=== PATIENT | female | born 1965 | race Hispanic/Latino ===

== ENCOUNTER 2018-01-05 18:28 | Emergency (ER) | payer OTHER ==
--- OUTSIDE RECORDS SUMMARY | 2018-01-05 18:31 | XMS REPORT | Clinical Summary ---
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 Disp. Refills Start Date End Date Status BREO ELLIPTA 200-25 INHALE ONE DOSE BY 60 each 3 04/13/2016 Active mcg/dose blister with MOUTH DAILY device BREO ELLIPTA 200-25 INHALE 1 INHALATIONS 30 each 2 09/29/2016 Active mcg/dose blister with DAILY FOR 30 DAYS. device powder for inhalation Active Problems Problem Noted Date Lung nodule 01/23/2016 Hypertension Diabetes mellitus Asthma Family History Medical History Relation Name Comments Heart attack Maternal Grandfather Hypertension Maternal Grandfather Arthritis Maternal Grandmother Diabetes Maternal Grandmother Heart attack Maternal Grandmother Hypertension Maternal Grandmother Kidney disease Maternal Grandmother Diabetes Mother Heart attack Mother Hypertension Mother Stroke Mother Thyroid disease Mother Heart attack Paternal Grandfather Hypertension Paternal Grandfather Heart attack Paternal Grandmother Hypertension Paternal Grandmother Crohn's disease Sister Relation Name Status Comments Maternal Grandfather Maternal Grandmother Mother Paternal Grandfather Paternal Grandmother Sister Social History Tobacco Use Types Packs/Day Years Used Date Former Smoker 1 3 Quit: 1983 Alcohol Use Drinks/Week oz/Week Comments Yes social Sex Assigned at Date Recorded Not on file Last Filed Vital Signs Not on file Plan of Treatment Health Maintenance Due Date Last Done Comments DIABETIC FOOT EXAM 1973 DIABETIC RETINAL EYE EXAM 1973 URINE MICROALBUMIN 1973 CERVICAL CANCER SCREENING 1984 BREAST CANCER SCREENING 2013 COLON CANCER SCREENING 2013 SHINGRIX VACCINE (#1) 2013 INFLUENZA VACCINE 03/02/2018 Results Not on fileafter 01/04/2017 Insurance Payer Benefit Plan / Group Subscriber ID Type Phone Address [facility] [employer] HMO/POS/PPO xxxxxxxxx PPO Home: [address] [phone] [address]
--- NOTE | 2018-01-05 20:09 | RAD REPORT ---
EXAM DESCRIPTION: RAD - Knee Right 3 View - 01/05/2018 7:59 pm CLINICAL HISTORY: Slip and fall, knee pain COMPARISON: September 2015 FINDINGS: No fracture, dislocation or periosteal reaction.No joint effusion seen. No joint space carlin rowing. No measurable degenerative change. There is a very minimal spur at the quadriceps attachment to the patella. This is similar to the comparison. IMPRESSION: No acute bone or joint finding. Clinical concerns for internal derangement or occult bony injury could be further assessed with MR im aging.
--- NOTE | 2018-01-05 20:10 | RAD REPORT ---
EXAM DESCRIPTION: RAD - Femur Right - 01/05/2018 7:59 pm CLINICAL HISTORY: Slip and fall, leg pain COMPARISON: None. FINDINGS: No fracture, dislocation or periosteal reaction noted. No acute or suspicious bony finding . No air or foreign body in the soft tissues. IMPRESSION: Negative right femur examination.
[2018-01-05] MEDS ORDERED: IBUPROFEN 200 MG TAB PO ONE (22:45)
--- NOTE | 2018-01-05 22:45 | EDPHYS ---
Physician Documentation [facility] Name: Isela Ivan Age: 52 yrs Sex: Female : 1965 Arrival Date: 01/05/2018 Time: 18:45 Bed 27 Private MD: ED Physician Pop Ye HPI: 01/05 22:39 This 52 yrs old Female presents to ER via EMS with complaints of Fall Injury. hanh 22:39 Details of fall: The patient fell from an upright position, while walking. Onset: The hanh symptoms/episode began/occurred just prior to arrival. Associated injuries: The patient sustained lateral aspect of right thigh, lateral aspect of right knee, medial aspect of right thigh, medial aspect of right knee, right quadriceps and right knee, decreased range of motion. Severity of symptoms: At their worst the symptoms were mild, in the emergency department the symptoms are unchanged. The patient has not experienced similar symptoms in the past. 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 - Ebola Screening: : Patient negative for fever greater than or equal to 101.5 degrees Fahrenheit, and additional compatible Ebola Virus Disease symptoms Patient denies exposure to infectious person Patient denies travel to an Ebola-affected area in the 21 days before illness onset No symptoms or risks identified at this time. - Family history:: not pertinent. ROS: 22:39 Constitutional: Negative for fever, chills, and weight loss, Eyes: Negative for injury, hanh pain, redness, and discharge, ENT: Negative for injury, pain, and discharge, Neck: Negative for injury, pain, and swelling, Cardiovascular: Negative for chest pain, palpitations, and edema, Respiratory: Negative for shortness of breath, cough, wheezing, and pleuritic chest pain, Abdomen/GI: Negative for abdominal pain, nausea, vomiting, diarrhea, and constipation, Back: Negative for injury and pain, : Negative for injury, bleeding, discharge, and swelling, Skin: Negative for injury, rash, and discoloration, Neuro: Negative for headache, weakness, numbness, tingling, and seizure, Psych: Negative for depression, anxiety, suicide ideation, homicidal ideation, and hallucinations, Allergy/Immunology: Negative for hives, rash, and allergies, Endocrine: Negative for neck swelling, polydipsia, polyuria, polyphagia, and marked weight changes, Hematologic/Lymphatic: Negative for swollen nodes, abnormal bleeding, and unusual bruising. 22:39 MS/extremity: Positive for injury or acute deformity, decreased range of motion, pain, of the right leg. Exam: 22:39 Constitutional: This is a well developed, well nourished patient who is awake, alert, hanh and in no acute distress. Head/Face: Normocephalic, atraumatic. Eyes: Pupils equal round and reactive to light, extra-ocular motions intact. Lids and lashes normal. Conjunctiva and sclera are non-icteric and not injected. Cornea within normal limits. Periorbital areas with no swelling, redness, or edema. ENT: Nares patent. No nasal discharge, no septal abnormalities noted. Tympanic membranes are normal and external auditory canals are clear. Oropharynx with no redness, swelling, or masses, exudates, or evidence of obstruction, uvula midline. Mucous membranes moist. Neck: Trachea midline, no thyromegaly or masses palpated, and no cervical lymphadenopathy. Supple, full range of motion without nuchal rigidity, or vertebral point tenderness. No Meningismus. Chest/axilla: Normal chest wall appearance and motion. Nontender with no deformity. No lesions are appreciated. Cardiovascular: Regular rate and rhythm with a normal S1 and S2. No gallops, murmurs, or rubs. Normal PMI, no JVD. No pulse deficits. Respiratory: Lungs have equal breath sounds bilaterally, clear to auscultation and percussion. No rales, rhonchi or wheezes noted. No increased work of breathing, no retractions or nasal flaring. Abdomen/GI: Soft, non-tender, with normal bowel sounds. No distension or tympany. No guarding or rebound. No evidence of tenderness throughout. Back: No spinal tenderness. No costovertebral tenderness. Full range of motion. Female : Normal external genitalia. Skin: Warm, dry with normal turgor. Normal color with no rashes, no lesions, and no evidence of cellulitis. Neuro: Awake and alert, GCS 15, oriented to person, place, time, and situation. Cranial nerves II-XII grossly intact. Motor strength 5/5 in all extremities. Sensory grossly intact. Cerebellar exam normal. Normal gait. Psych: Awake, alert, with orientation to person, place and time. Behavior, mood, and affect are within normal limits. 22:39 Musculoskeletal/extremity: Circulation is intact in all extremities. Compartment Syndrome exam of affected extremity: is normal. DVT Exam: no swelling, negative Homans' sign noted on exam, no appreciated bluish discoloration, no erythema, no increased warmth, pain, tenderness. Vital Signs: 18:48 BP 150 / 78; Pulse 91; Resp 16; Temp 98.0; Pulse Ox 98% on R/A; Weight 95.25 kg; Height aj 5 ft. 2 in. (157.48 cm); Pain 8/10; 23:03 BP 143 / 84; Pulse 87; Resp 18; Pulse Ox 100% on R/A; mb3 18:48 Body Mass Index 38.41 (95.25 kg, 157.48 cm) Blanka Coma Score: 18:48 Eye Response: spontaneous(4). Verbal Response: oriented(5). Motor Response: obeys aj commands(6). Total: 15. Trauma Score (Adult): 18:48 Eye Response: spontaneous(1); Verbal Response: oriented(1); Motor Response: obeys aj commands(2); Systolic BP: > 89 mm Hg(4); Respiratory Rate: 10 to 29 per min(4); Blanka Score: 15; Trauma Score: 12 MDM: 21:54 Patient medically screened. [facility] 22:42 Data reviewed: vital signs, nurses notes, radiologic studies, plain films. [facility] 01/05 18:54 Order name: XRAY Knee RIGHT 3 view; Complete Time: 22:38 01/05 18:54 Order name: XRAY Femur RIGHT; Complete Time: 22:38 Administered Medications: 22:44 Drug: Motrin 600 mg Route: PO; mb3 23:02 Follow up: Response: No adverse reaction mb3 Disposition: 01/05/18 22:45 Discharged to Home. Impression: Fall due to bumping against object, Contusion of knee, Pain in right leg. - Condition is Stable. - Discharge Instructions: Musculoskeletal Pain. - Prescriptions for Tylenol- Codeine #3 300-30 mg Oral Tablet - take 2 tablets by ORAL route every 6 hours As needed; 26 tablet. Motrin IB 200 mg Oral Tablet - take 2 tablet by ORAL route every 6 hours As needed as needed with food; 20 tablet. - Medication Reconciliation Form, Thank You Letter, Antibiotic Education, Prescription Opioid Use form. - Follow up: Private Physician; When: 2 - 3 days; Reason: Recheck today's complaints, Continuance of care, Re-evaluation by your physician. Follow up: Katrhikeyan Stafford MD; When: 2 - 3 days; Reason: Recheck today's complaints, Re-evaluation by your physician. - Problem is new. - Symptoms have improved. Signatures: Dispatcher [employer] EDBarbara Babin RN RN aj Anderson, Corey, MD MD cha Barnett, Mark RN RN mb3 Corrections: (The following items were deleted from the chart) 18:51 18:48 Immunization history Last tetanus immunization: - up to date. larry juarez 23:05 22:45 01/05/2018 22:45 Discharged to Home. Impression: Fall due to bumping against mb3 object; Contusion of knee; Pain in right leg. Condition is Stable. Forms are Medication Reconciliation Form, Thank You Letter, Antibiotic Education, Prescription Opioid Use. Follow up: Private Physician; When: 2 - 3 days; Reason: Recheck today's complaints, Continuance of care, Re-evaluation by your physician. Follow up: Karthikeyan Stafford; When: 2 - 3 days; Reason: Recheck today's complaints, Re-evaluation by your physician. Problem is new. Symptoms have improved. hanh
--- NOTE | 2018-01-05 22:45 | ER ---
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 Reports aj pain that radiates up femur. No redness noted, mild swelling observed. Patient appears comfortable. Care prior to arrival: None. Mechanism of Injury: Fall from standing position. Trauma event details: Injury occurred in the [facility], Injury occurred: in a public building. Injury occurred: January 05, 2018 Injury occurred at: 18:15. 18:48 Acuity: VENKAT 4 aj 18:48 Method Of Arrival: EMS: [facility] 22:24 Transition of care: patient was not received from another setting of care. Onset of mb3 symptoms was January 05, 2018 at 21:30. Risk Assessment: Do you want to hurt yourself or someone else? Patient reports no desire to harm self or others. Initial Sepsis Screen: Does the patient meet any 2 criteria? No. Patient's initial sepsis screen is negative. Does the patient have a suspected source of infection? No. Patient's initial sepsis screen is negative. 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 LMP N/A - Post-menopause mb3 Trauma Activation: Not Applicable Physician: ED Physician; Name: ; Notified At: ; Arrived At: Physician: General Surgeon; Name: ; Notified At: ; Arrived At: Physician: Radiology; Name: ; Notified At: ; Arrived At: Physician: Respiratory; Name: ; Notified At: ; Arrived At: Physician: Lab; Name: ; Notified At: ; Arrived At: Historical: - Allergies: 18:53 Iodine; aj 18:53 Dairy; aj - Home Meds: 18:53 Metformin Oral [Active]; Lisinopril Oral [Active]; Hydrochlorothiazide Oral [Active]; aj Symbicort inhalation inhalation [Active]; - PMHx: 18:53 Diabetes - NIDDM; Hypertension; Asthma; aj - PSHx: 18:53 None; aj - Social history:: Smoking status: Patient/guardian denies using tobacco. - Ebola Screening: : Patient negative for fever greater than or equal to 101.5 degrees Fahrenheit, and additional compatible Ebola Virus Disease symptoms Patient denies exposure to infectious person Patient denies travel to an Ebola-affected area in the 21 days before illness onset No symptoms or risks identified at this time. - Family history:: not pertinent. Screenin:22 Abuse screen: Denies threats or abuse. Nutritional screening: No deficits noted. mb3 Tuberculosis screening: No symptoms or risk factors identified. Fall Risk None identified. Primary Survey: 18:48 A: Airway: patent. Breathing/Chest: Respiratory pattern: regular, Respiratory effort: aj spontaneous, unlabored. Circulation: Skin color: pink. Disability Alert. 22:23 Reassessment Airway Airway Patent Breathing/Chest Respiratory pattern Regular mb3 Respiratory effort Spontaneous Unlabored Circulation Heart rhythm Sinus rhythm. Assessment: 18:48 General: Appears in no apparent distress. comfortable, Behavior is calm, cooperative, aj appropriate for age. Pain: Complains of pain in right quadriceps and right knee Pain currently is 8 out of 10 on a pain scale. Neuro: Level of Consciousness is awake, alert, obeys commands, Oriented to person, place, time, situation, Appropriate for age. Respiratory: Airway is patent Respiratory effort is even, unlabored, Respiratory pattern is regular, symmetrical. Derm: Skin is intact, is healthy with good turgor, Skin is pink, warm \T\ dry. normal. Musculoskeletal: Circulation, motion, and sensation intact. Swelling present in right knee Reports pain in left quadriceps and left knee. Vital Signs: 18:48 BP 150 / 78; Pulse 91; Resp 16; Temp 98.0; Pulse Ox 98% on R/A; Weight 95.25 kg; Height aj 5 ft. 2 in. (157.48 cm); Pain 8/10; 23:03 BP 143 / 84; Pulse 87; Resp 18; Pulse Ox 100% on R/A; mb3 18:48 Body Mass Index 38.41 (95.25 kg, 157.48 cm) aj [place] Coma Score: 18:48 Eye Response: spontaneous(4). Verbal Response: oriented(5). Motor Response: obeys aj commands(6). Total: 15. Trauma Score (Adult): 18:48 Eye Response: spontaneous(1); Verbal Response: oriented(1); Motor Response: obeys aj commands(2); Systolic BP: > 89 mm Hg(4); Respiratory Rate: 10 to 29 per min(4); [place] Score: 15; Trauma Score: 12 ED Course: 18:45 Patient arrived in ED. sb2 18:50 Triage completed. aj 18:53 Arm band placed on left wrist. Patient placed in waiting room, Patient notified of wait aj time. X-ray ordered. 19:44 Patient moved to radiology via wheelchair. jb2 19:59 XRAY Knee RIGHT 3 view In Process Unspecified. EDMS 19:59 XRAY Femur RIGHT In Process Unspecified. EDMS 21:54 Pop Ye MD is Attending Physician. [facility] 22:16 Erasto Quinn, RN is Primary Nurse. mb3 22:24 Patient maintains SpO2 saturation greater than 95% on room air. Thermoregulation: warm mb3 blanket given to patient. 22:27 Patient has correct armband on for positive identification. Bed in low position. Call mb3 light in reach. 22:42 Karthikeyan Stafford MD is Referral Physician. hanh 23:04 No provider procedures requiring assistance completed. Patient did not have IV access mb3 during this emergency room visit. Administered Medications: 22:44 Drug: Motrin 600 mg Route: PO; mb3 23:02 Follow up: Response: No adverse reaction mb3 Outcome: 22:45 Discharge ordered by . hanh 23:04 Discharged to home ambulatory. mb3 23:04 Discharged to home 23:04 Condition: stable 23:04 Discharge instructions given to patient, Instructed on discharge instructions, follow up and referral plans. medication usage, Demonstrated understanding of instructions, follow-up care, medications, Prescriptions given X 2. 23:05 Patient left the ED. mb3 Signatures: Dispatcher [employer] Barbara Tabor, RN RN Pop Torres MD MD cha Buechter, Jesse jb2 Delilah Lynch sb2 Erasto Quinn, RN RN mb3 Corrections: (The following items were deleted from the chart) 18:51 18:48 Immunization history Last tetanus immunization: - up to date. aj aj
[2018-01-05 23:15] VITALS: TEMP 98
[2018-01-05 23:16] VITALS: BP 143/84; O2SAT 100
== END 2018-01-05 23:05 | disposition home or self-care (01) ==
LOC: ER 18:28
DX: S80.01XA Contusion of right knee, initial encounter (principal); W01.0XXA Fall on same level from slipping, tripping and stumbling without subsequent striking against object, initial encounter; Y93.9 Activity, unspecified; Y92.89 Other specified places as the place of occurrence of the external cause; Z78.0 Asymptomatic menopausal state; Z91.011 Allergy to milk products; Z91.048 Other nonmedicinal substance allergy status; E11.9 Type 2 diabetes mellitus without complications; Z79.84 Long term (current) use of oral hypoglycemic drugs; I10 Essential (primary) hypertension; J45.909 Unspecified asthma, uncomplicated; M79.604 Pain in right leg
CPT/HCPCS: 99284

== ENCOUNTER 2021-01-18 19:18 | Emergency (ER) | payer OTHER ==
[2021-01-18] MEDS ORDERED: dexAMETHasone 10 MG/ML VIAL ONE (20:25)
[2021-01-18] MEDS ORDERED: DIPHENHYDRAMINE 50 MG/ML VIAL ONE (20:25)
[2021-01-18] MEDS ORDERED: MECLIZINE HCL 12.5 MG TAB ONE (20:26)
[2021-01-18] MEDS ORDERED: ONDANSETRON 4 MG/2 ML VIAL ONE (20:32)
[2021-01-18 20:36] LABS: Absolute Lymphocytes (CBC) 1.7 K/uL (0.7-4.9); Basophils % 0.7 % (0-1.3); Hematocrit 37.5 % (36.0-45.0); Lymphocytes % 27.3 % (15.3-44.8); MPV 9.3 fL (7.6-11.3); RBC Red Blood Cell Count 4.52 M/uL (3.86-4.86)
[2021-01-18 20:43] LABS: Protime INR 1.09
[2021-01-18 20:58] LABS: ALT/SGPT 118 U/L (12-78); AST/SGOT 123 U/L (15-37); Albumin 4.1 g/dL (3.4-5.0); Alkaline Phosphatase 100 U/L (45-117); BUN Blood Urea Nitrogen 12 mg/dL (7-18); Bicarbonate 25 mmol/L (21-32); Bilirubin Direct 0.2 mg/dL (0-0.2); Bilirubin Total 0.8 mg/dL (0.2-1.0); Glucose Level 110 mg/dL (74-106); Magnesium 2.4 mg/dL (1.8-2.4); NT PRO-BNP 20 pg/mL (<125); Protein, Total 9.2 g/dL (6.4-8.2); Sodium Level 143 mmol/L (136-145); Troponin (Emerg Dept Use Only) < 0.02 ng/mL (0.0-0.045)
--- NOTE | 2021-01-18 23:33 | ER ---
Nurse's Notes [facility] Name: Isela Ivan Age: 55 yrs Sex: Female : 1965 Arrival Date: 01/18/2021 Time: 19:21 Bed 6 Private MD: Diagnosis: Dizziness and giddiness Presentation: 01/18 19:37 Chief complaint: Patient states: i woke up this morning feeling dizzy, headache and rr5 throw up a lot. before I feel like the room was spinning but now it's just when i try to walk. Coronavirus screen: Client denies travel out of the [place] in the last 14 days. At this time, the client does not indicate any symptoms associated with coronavirus-19. Ebola Screen: Patient negative for fever greater than or equal to 101.5 degrees Fahrenheit, and additional compatible Ebola Virus Disease symptoms Patient denies exposure to infectious person. Patient denies travel to an Ebola-affected area in the 21 days before illness onset. Initial Sepsis Screen: Does the patient meet any 2 criteria? No. Patient's initial sepsis screen is negative. Does the patient have a suspected source of infection? No. Patient's initial sepsis screen is negative. Risk Assessment: Do you want to hurt yourself or someone else? Patient reports no desire to harm self or others. Onset of symptoms was January 18, 2021. 19:37 Method Of Arrival: Wheelchair rr5 19:37 Acuity: VENKAT 3 rr5 Historical: - Allergies: 19:42 Iodine; rr5 19:42 seafood; rr5 - Home Meds: 19:42 lisinopril Oral [Active]; Metformin Oral [Active]; Hydrochlorothiazide Oral [Active]; rr5 aspirin Oral [Active]; Albuterol Inhl [Active]; Meclizine Oral [Active]; rosuvastatin oral oral [Active]; - PMHx: 19:42 Asthma; Diabetes - NIDDM; Hypertension; Hyperlipidemia; rr5 - PSHx: 19:42 Cholecystectomy; Tubal ligation; rr5 - Immunization history:: Adult Immunizations up to date, Client reports receiving the 2nd dose of the Covid vaccine, October 2020. - Social history:: Smoking status: unknown. Screenin:29 Abuse screen: Denies threats or abuse. Denies injuries from another. Nutritional lp1 screening: No deficits noted. Tuberculosis screening: No symptoms or risk factors identified. Fall Risk Total Coppola Fall Scale indicates High Risk Score (45 or more points). Fall prevention measures have been instituted. Side Rails Up X 2 As available patient and family educated on Fall Prevention Program and Strategies. Assessment: 20:30 General: Appears in no apparent distress. Behavior is calm, cooperative, appropriate lp1 for age. Pain: Denies pain. Neuro: Level of Consciousness is awake, alert, obeys commands, Oriented to person, place, time, situation, Reports dizziness, since this morning. Cardiovascular: Patient's skin is warm and dry. Respiratory: Respiratory effort is even, unlabored, Breath sounds are clear bilaterally. GI: Abdomen is non-distended, Reports nausea. : No signs and/or symptoms were reported regarding the genitourinary system. EENT: No signs and/or symptoms were reported regarding the EENT system. Derm: Skin is pink, warm \T\ dry. Musculoskeletal: No deficits noted. 21:30 Reassessment: Patient appears in no apparent distress at this time. Patient is alert, lp1 oriented x 3, equal unlabored respirations, skin warm/dry/pink. Patient states feeling better. 22:50 Reassessment: Patient ambulated independently to bathroom at this time; reports feeling lp1 better, readiness for discharge. 23:41 Reassessment: Patient reports readiness for discharge, does not want to wait for lp1 imaging results; Provider notified. Vital Signs: 19:37 BP 130 / 91; Pulse 79; Resp 16; Temp 99; Pulse Ox 100% ; Weight 90.72 kg; Height 5 ft. rr5 2 in. (157.48 cm); Pain 7/10; 20:30 BP 139 / 83; Pulse 74; Resp 18; Pulse Ox 100% on R/A; lp1 21:30 BP 154 / 85; Pulse 63; Resp 16; Pulse Ox 100% on R/A; lp1 22:00 BP 146 / 83; Pulse 71; Resp 18; Pulse Ox 100% on R/A; lp1 22:45 BP 143 / 71; Pulse 78; Resp 16; Pulse Ox 100% on R/A; lp1 23:15 BP 155 / 91; Pulse 74; Resp 16; Pulse Ox 100% on R/A; lp1 19:37 Body Mass Index 36.58 (90.72 kg, 157.48 cm) rr5 ED Course: 19:21 Patient arrived in ED. cf2 19:39 Triage completed. rr5 19:42 Arm band placed on right wrist. rr5 19:44 Genaro Grace PA is PHCP. m 19:44 Kenny Strong MD is Attending Physician. m 20:01 Christine Lamb, RN is Primary Nurse. lp1 20:20 Inserted saline lock: 22 gauge in right forearm, using aseptic technique. Blood lp1 collected. 20:30 Patient has correct armband on for positive identification. Placed in gown. Bed in low lp1 position. Call light in reach. monitoring engineer on. Pulse ox on. NIBP on. 22:00 CT Head Brain wo Cont In Process Unspecified. EDMS 23:32 Gloria Chandler MD is Referral Physician. jmm 23:32 Curtis Maurer MD is Referral Physician. [facility] 23:46 No provider procedures requiring assistance completed. IV discontinued. lp1 Administered Medications: 20:20 Drug: Zofran (Ondansetron) 4 mg Route: IVP; Site: right forearm; lp1 21:52 Follow up: Response: Marked relief of symptoms lp1 21:52 Drug: Meclizine 25 mg Route: PO; lp1 23:00 Follow up: Response: No adverse reaction lp1 22:28 Not Given (Patient Refused; For CT with iodine): Decadron - Dexamethasone 10 mg IVP oncelp1 22:28 Not Given (Patient Refused; For CT with iodine): Benadryl (diphenhydrAMINE) 12.5 mg IVP lp1 once Outcome: 23:32 Discharge ordered by . m 23:41 Discharged to home ambulatory, with significant other. lp1 23:41 Condition: good 23:41 Discharge instructions given to patient, Instructed on discharge instructions, follow up and referral plans. medication usage, Demonstrated understanding of instructions, follow-up care, medications, Prescriptions given X 2. 23:46 Patient left the ED. lp1 Signatures: Dispatcher [employer] EDMS Genaro Grace PA PA [facility] Christine Lamb, RN RN lp1 Satya Hanson RN RN rrTor Myrick cf2
--- NOTE | 2021-01-18 23:33 | EDPHYS ---
Physician Documentation [facility] Name: Isela Ivan Age: 55 yrs Sex: Female : 1965 Arrival Date: 01/18/2021 Time: 19:21 Bed 6 Private MD: ED Physician Kenny Strong HPI: 01/18 19:57 This 55 yrs old Female presents to ER via Wheelchair with complaints of jmm Dizziness, Nausea/Vomiting, Headache < 24hrs Old. 19:57 The patient presents with dizziness. Onset: The symptoms/episode began/occurred jmm acutely, this morning. Modifying factors: The symptoms are alleviated by holding head still, the symptoms are aggravated by movement of head, standing up, changing position. Associated signs and symptoms: Pertinent positives: vomiting. This is a 55 year old female with a history of asthma, that presents to the ED with complaints of acute onset dizziness. Worsening with change in position. . Historical: - Allergies: 19:42 Iodine; rr5 19:42 seafood; rr5 - Home Meds: 19:42 lisinopril Oral [Active]; Metformin Oral [Active]; Hydrochlorothiazide Oral [Active]; rr5 aspirin Oral [Active]; Albuterol Inhl [Active]; Meclizine Oral [Active]; rosuvastatin oral oral [Active]; - PMHx: 19:42 Asthma; Diabetes - NIDDM; Hypertension; Hyperlipidemia; rr5 - PSHx: 19:42 Cholecystectomy; Tubal ligation; rr5 - Immunization history:: Adult Immunizations up to date, Client reports receiving the 2nd dose of the Covid vaccine, October 2020. - Social history:: Smoking status: unknown. ROS: 19:57 Constitutional: Negative for fever, chills, and weight loss, Cardiovascular: Negative jmm for chest pain, palpitations, and edema, Respiratory: Negative for shortness of breath, cough, wheezing, and pleuritic chest pain. 19:57 Neuro: Positive for dizziness. 19:57 All other systems are negative. Exam: 19:57 Constitutional: This is a well developed, well nourished patient who is awake, alert, jmm and in no acute distress. Head/Face: atraumatic. 19:57 ENT: Moist Mucus Membranes Neck: Trachea midline, Supple Chest/axilla: Normal chest wall appearance and motion. Cardiovascular: Regular rate and rhythm. No edema appreciated Respiratory: Normal respirations, no respiratory distress appreciated Abdomen/GI: Non distended, soft Back: Normal ROM Skin: General appearance color normal MS/ Extremity: Moves all extremities, no obvious deformities appreciated, no edema noted to the lower extremities 19:57 Eyes: Nystagmus: nystagmus with fast component noted, bilaterally. 19:57 Neuro: Orientation: is normal, Mentation: is normal, Memory: is normal, Cerebellar function: normal finger to nose testing, heel to lucas testing is normal. 19:57 Psych: Behavior/mood is pleasant, cooperative. Vital Signs: 19:37 BP 130 / 91; Pulse 79; Resp 16; Temp 99; Pulse Ox 100% ; Weight 90.72 kg; Height 5 ft. rr5 2 in. (157.48 cm); Pain 7/10; 20:30 BP 139 / 83; Pulse 74; Resp 18; Pulse Ox 100% on R/A; lp1 21:30 BP 154 / 85; Pulse 63; Resp 16; Pulse Ox 100% on R/A; lp1 22:00 BP 146 / 83; Pulse 71; Resp 18; Pulse Ox 100% on R/A; lp1 22:45 BP 143 / 71; Pulse 78; Resp 16; Pulse Ox 100% on R/A; lp1 23:15 BP 155 / 91; Pulse 74; Resp 16; Pulse Ox 100% on R/A; lp1 19:37 Body Mass Index 36.58 (90.72 kg, 157.48 cm) rr5 MDM: 19:57 Patient medically screened. [facility] 23:31 Data reviewed: vital signs, nurses notes. Counseling: I had a detailed discussion with angela the patient and/or guardian regarding: the historical points, exam findings, and any diagnostic results supporting the discharge/admit diagnosis, lab results, the need for outpatient follow up, to return to the emergency department if symptoms worsen or persist or if there are any questions or concerns that arise at home. ED course: Patient refused CTA. States feeling much better. I do not suspect central cause. Advised to follow up with neuro and ENT for further evaluation. Patient understood and agrees with the plan of care. . 01/18 19:57 Order name: Basic Metabolic Panel; Complete Time: 21:20 [facility] 01/18 19:57 Order name: CBC with Diff; Complete Time: 20:41 [facility] 01/18 19:57 Order name: LFT's; Complete Time: 21:20 [facility] 01/18 19:57 Order name: Magnesium; Complete Time: 21:20 [facility] 01/18 19:57 Order name: NT PRO-BNP; Complete Time: 21:20 [facility] 01/18 19:57 Order name: PT-INR; Complete Time: 20:51 [facility] 01/18 19:57 Order name: Troponin (emerg Dept Use Only); Complete Time: 21:20 [facility] 01/18 19:59 Order name: CT Head Brain wo Cont [facility] 01/18 19:57 Order name: EKG; Complete Time: 19:58 [facility] 01/18 19:57 Order name: Cardiac monitoring; Complete Time: 20:43 [facility] 01/18 19:57 Order name: EKG - Nurse/Tech; Complete Time: 20:43 [facility] 01/18 19:57 Order name: IV Saline Lock; Complete Time: 20:29 [facility] 01/18 19:57 Order name: Labs collected and sent; Complete Time: 20:29 [facility] 01/18 19:57 Order name: O2 Per Protocol; Complete Time: 20:29 [facility] 01/18 19:57 Order name: O2 Sat Monitoring; Complete Time: 20:29 jm Administered Medications: 20:20 Drug: Zofran (Ondansetron) 4 mg Route: IVP; Site: right forearm; lp1 21:52 Follow up: Response: Marked relief of symptoms lp1 21:52 Drug: Meclizine 25 mg Route: PO; lp1 23:00 Follow up: Response: No adverse reaction lp1 22:28 Not Given (Patient Refused; For CT with iodine): Decadron - Dexamethasone 10 mg IVP oncelp1 22:28 Not Given (Patient Refused; For CT with iodine): Benadryl (diphenhydrAMINE) 12.5 mg IVP lp1 once Disposition: 01/19 05:13 Co-signature as Attending Physician, Kenny Strong MD. [email or web address] Disposition: 01/18/21 23:32 Discharged to Home. Impression: Dizziness and giddiness. - Condition is Stable. - Discharge Instructions: Benign Positional Vertigo, Dizziness. - Prescriptions for Zofran ODT 4 mg Oral tablet,disintegrating - place 1 tablet by TRANSLINGUAL route every 4-6 hours; 20 tablet. Meclizine 25 mg Oral Tablet - take 1 tablet by ORAL route every 8 hours As needed; 30 tablet. - Medication Reconciliation Form, Thank You Letter, Antibiotic Education, Prescription Opioid Use form. - Follow up: Gloria Chandler MD; When: 2 - 3 days; Reason: Recheck today's complaints, Continuance of care, Re-evaluation by your physician. Follow up: Curtis Maurer MD; When: 2 - 3 days; Reason: Recheck today's complaints, Continuance of care, Re-evaluation by your physician. Signatures: Dispatcher [employer] EDMS Genaro Grace PA PA [facility] Christine Lamb RN RN lp1 Satya Hanson RN RN rr5 Kenny Strong MD MD [email or web address] Corrections: (The following items were deleted from the chart) 01/18 21:22 19:59 Abdomen Angio+CT.RAD.BRZ ordered. EDNV EDMS 21:57 19:59 Head Angio+CT.RAD.BRZ ordered. EDNV EDMS 21:57 21:20 Neck Angio+CT.RAD.BRZ ordered. EDNV EDMS 23:46 23:32 01/18/2021 23:32 Discharged to Home. Impression: Dizziness and giddiness. lp1 Condition is Stable. Forms are Medication Reconciliation Form, Thank You Letter, Antibiotic Education, Prescription Opioid Use. Follow up: Gloria Chandler; When: 2 - 3 days; Reason: Recheck today's complaints, Continuance of care, Re-evaluation by your physician. Follow up: Curtis Maurer; When: 2 - 3 days; Reason: Recheck today's complaints, Continuance of care, Re-evaluation by your physician. angela
[2021-01-19 00:24] VITALS: TEMP 99; O2SAT 100
[2021-01-19 00:33] VITALS: BP 155/91
--- NOTE | 2021-01-20 08:26 | EKG ---
Test Date: 2021-01-18 Test Time: 20:35:52 Carburetor Expert: ABIGAIL MEASUREMENT RESULTS: Intervals: Rate: 71 ND: 174 QRSD: 88 QT: 408 QTc: 443 [place]: P: 23 ND: 174 QRS: 55 T: 20 INTERPRETIVE STATEMENTS: Normal sinus rhythm Normal ECG Compared to ECG 05/24/2013 20:48:30 No significant changes Electronically Signed On 01-20-21 08:24:03 CDT by Nehemiah Mckay
--- NOTE | 2021-01-20 09:13 | RAD REPORT ---
EXAM DESCRIPTION: CT - Head Brain Wo Cont - 01/19/2021 6:46 am CLINICAL HISTORY: DIZZINESS COMPARISON: 09/19/2015 TECHNIQUE: Axial unenhanced CT imaging of the brain. Reformatted coronal and sagittal images obtaine d. This examination was performed according to our departmental dose optimization program, which include s automated exposure control, adjustment of the mA and/or kV according to patient size and/or use of iterative reconstruction technique. FINDINGS: The ventricles and extra-axial fluid spaces appear normal. There are coarse bilateral basa l ganglia senescent calcifications. There is no intracranial hemorrhage. No edema, mass, mass effect or midline shift. No evidence of acute infarct or hyperdense vessel. There are low-lying cerebellar tonsils without ectopia. Fourth ventricle is midline. Normal sella con tents. Intraorbital contents are unremarkable. Clear paranasal sinuses. Mastoid air cells are clear. Skull b ase and calvarium are intact. Normal scalp soft tissues. IMPRESSION: 1. No intracranial acute finding. Electronically signed by: Debbie Hoffmann DO 01/18/2021 11:40 PM CDT Due to temporary technical issues with the PACS/Fluency reporting system, reports are being signed by the in house radiologists without review as a courtesy to insure prompt reporting. The interpreting radiologist is fully responsible for the content of the report.
== END 2021-01-18 23:46 | disposition home or self-care (01) ==
LOC: ER 19:18
DX: R42 Dizziness and giddiness (principal); E11.9 Type 2 diabetes mellitus without complications; I10 Essential (primary) hypertension; J45.909 Unspecified asthma, uncomplicated; Z91.013 Allergy to seafood; Z91.048 Other nonmedicinal substance allergy status
CPT/HCPCS: 93005; 85025; 80048; 36415; 83735; 85610; 80076; 84484; 83880; 70450; J1200; J1100; J2405

== ENCOUNTER → 2023-10-25 | Emergency (ER) | payer OTHER ==
[~2023-10-25] MED LIST: HYDROCODONE/APAP 10/325 TAB ONE; IBUPROFEN 200 MG TAB PO ONE
--- NOTE | 2023-10-25 13:53 | RAD REPORT ---
EXAM DESCRIPTION: CT - Chest Abd Pelvis Wo Con - 10/25/2023 1:30 pm CLINICAL HISTORY: Chest and abdominal pain. Right rib pain COMPARISON: None TECHNIQUE: Computed axial tomography of the chest, abdomen and pelvis was obtained. Oral contrast wa s given. IV contrast was not requested. All CT scans are performed using dose optimization technique as appropriate and may include automated exposure control or mA/KV adjustment according to patient size. FINDINGS: The evaluation of mediastinum, yemi, vessels and solid organs is limited secondary to the lack of IV contrast administration A 9 millimeter right upper lobe ground-glass nodule. Calcified granuloma left lung No mediastinal or hilar lymphadenopathy is seen. A pleural effusion is not present. A pericardial effusion is not seen. No displaced rib fracture seen The liver, spleen, pancreas, adrenals and kidneys appear grossly normal Cholecystectomy. There is no evidence of diverticulitis. Normal appendix Tubal ligation clips. No adnexal mass. Small to moderate ventral hernia below the level of the umbilicus IMPRESSION: A 9 millimeter right upper lobe ground-glass nodule. Followup CT chest in 6 months recom mended
--- NOTE | 2023-10-25 14:42 | ER ---
Nurse's Notes [facility] Name: Isela Ivan Age: 58 yrs Sex: Female : 1965 Arrival Date: 10/25/2023 Time: 13:07 Bed 16 Private MD: Diagnosis: Contusion of right front wall of thorax Presentation: 10/24 13:20 Chief complaint: Patient states: R lower rib pain x 3 days. Coronavirus screen: Vaccine me1 status: Patient reports receiving the 2nd dose of the covid vaccine. Ebola Screen: No symptoms or risks identified at this time. Initial Sepsis Screen: Does the patient meet any 2 criteria? No. Patient's initial sepsis screen is negative. Does the patient have a suspected source of infection? No. Patient's initial sepsis screen is negative. Risk Assessment: Do you want to hurt yourself or someone else? Patient reports no desire to harm self or others. Onset of symptoms was October 22, 2023. 13:20 Method Of Arrival: Ambulatory [facility] [place] 13:20 Acuity: VENKAT 3 me1 Triage Assessment: 13:21 General: Appears uncomfortable, well groomed, well developed, well nourished, Behavior me1 is calm, cooperative, appropriate for age. Pain: Complains of pain in right lateral anterior chest Pain does not radiate. Pain currently is 8 out of 10 on a pain scale. Quality of pain is described as aching, shooting, Pain began suddenly, 2-3 days ago. Is continuous. Neuro: Level of Consciousness is awake, alert, obeys commands, Oriented to person, place, time, situation, Appropriate for age. Cardiovascular: Patient's skin is warm and dry. Respiratory: Respiratory effort is even, unlabored, Respiratory pattern is regular, symmetrical. GI: No deficits noted. : No deficits noted. Derm: Skin is intact, is healthy with good turgor, Skin is pink, warm \T\ dry. Musculoskeletal: Reports pain in right lateral anterior chest. Historical: - Allergies: 13:21 Iodine; me1 13:21 SEAFOOD; me1 13:21 Singulair; me1 - PMHx: 13:21 Asthma; Hypertension; Hyperlipidemia; Diabetes - NIDDM; me1 - PSHx: 13:21 Cholecystectomy; me1 - Immunization history:: Adult Immunizations up to date. - Social history:: Smoking status: Patient/guardian denies using tobacco, but has a distant history of tobacco abuse. Screenin:25 [facility] ED Fall Risk Assessment (Adult) History of falling in the last 3 months, me1 including since admission Yes- single mechanical fall (1 pt) Confusion or Disorientation No (0 pts) Intoxicated or Sedated No (0 pts) Impaired Gait No (0 pts) Mobility Assist Device Used No (0 pt) Altered Elimination No (0 pt) Score/Fall Risk Level 0 - 2 = Low Risk Maintained a safe environment, Provided non-skid footwear, Hourly rounding (assess needs \T\ fall precautionary measures) done. Abuse screen: Denies threats or abuse. Nutritional screening: No deficits noted. Tuberculosis screening: No symptoms or risk factors identified. Assessment: 13:25 General: See triage assessment. . me1 Vital Signs: 13:20 BP 154 / 73; Pulse 85; Resp 16; Pulse Ox 100% ; me1 14:00 BP 133 / 86; Pulse 79; Resp 16; Pulse Ox 100% on R/A; me1 14:45 Pain 6/10; me1 14:53 BP 128 / 79; Pulse 81; Resp 16; Pulse Ox 100% on R/A; me1 14:45 Pain Scale: Adult me1 ED Course: 13:10 Patient arrived in ED. mg5 13:10 Gi Posadas FNP-C is PHCP. kb 13:10 Jaziel Quinetro DO is Attending Physician. kb 13:17 Rukhsana Gallo, KHUSHI is Primary Nurse. me1 13:21 Triage completed. me1 13:21 Arm band placed on Patient placed in an exam room. me1 13:25 Patient has correct armband on for positive identification. Bed in low position. Call de1 light in reach. Side rails up X 1. Provided Education on: POC. Verbalized understanding. . 13:25 No provider procedures requiring assistance completed. me1 13:32 CT Chest Abdomen Pelvis W/O Contrast In Process Unspecified. EDMS 14:54 IV discontinued, intact, bleeding controlled, No redness/swelling at site. Pressure me1 dressing applied. Administered Medications: 13:45 Drug: [place] PO 10 mg-325 mg 1 tabs PO once Route: PO; me1 14:45 Follow up: Response: No adverse reaction; Pain is decreased me1 13:45 Drug: Ibuprofen PO 600 mg PO once Route: PO; me1 14:45 Follow up: Pain 6/10 Adult; Response: No adverse reaction; Pain is decreased me1 Medication: 13:25 VIS not applicable for this client. me1 Outcome: 14:42 Discharge ordered by MD. mitchell 14:54 Discharged to home ambulatory, with family, me1 14:54 Condition: stable 14:54 Discharge instructions given to patient, family, Instructed on discharge instructions, follow up and referral plans. medication usage, Demonstrated understanding of instructions, follow-up care, medications, Prescriptions given X 1, 14:55 Patient left the ED. me1 Signatures: Dispatcher [employer] EDGi Recio, PRODUCTION MANAGER-C PRODUCTION MANAGER-Rukhsana Calderón, RN RN me1 Courtney Jackson mg5
--- NOTE | 2023-10-25 14:42 | EDPHYS ---
Physician Documentation [facility] Name: Isela Ivan Age: 58 yrs Sex: Female : 1965 Arrival Date: 10/25/2023 Time: 13:07 Bed 16 Private MD: ED Physician Jaziel Quintero HPI: 10/24 13:19 This 58 yrs old Female presents to ER via Unassigned with complaints of Flank kb Pain. 13:19 Pt is a 58 year old female who presents with right lower rib pain for 3 days. States kb she leaned over the washer to reach for clothes at the bottom and started having the pain. States the pain got worse last night. Denies cough, congestion, fever, shortness of breath. States the pain is worse with movement and palpation. Historical: - Allergies: 13:21 Iodine; me1 13:21 SEAFOOD; me1 13:21 Singulair; me1 - PMHx: 13:21 Asthma; Hypertension; Hyperlipidemia; Diabetes - NIDDM; me1 - PSHx: 13:21 Cholecystectomy; me1 - Immunization history:: Adult Immunizations up to date. - Social history:: Smoking status: Patient/guardian denies using tobacco, but has a distant history of tobacco abuse. ROS: 13:18 Constitutional: As per HPI kb Exam: 13:18 Constitutional: This is a well developed, well nourished patient who is awake, alert, kb and in no acute distress. Head/Face: Normocephalic, atraumatic. ENT: Moist Mucous membranes Cardiovascular: Regular rate Respiratory: Respirations even and unlabored. No increased work of breathing. Talking in full sentences Abdomen/GI: Soft, non-tender. No distention Skin: Warm, dry with normal turgor. Normal color. MS/ Extremity: Pulses equal, no cyanosis. Neurovascular intact. Full, normal range of motion. Neuro: Awake and alert, GCS 15, oriented to person, place, time, and situation. Moves all extremities. Normal gait. 13:18 Chest/axilla: Inspection: normal, Palpation: tenderness, that is moderate, of the right lower anterior ribs, that totally reproduces the patient's complaints, Vital Signs: 13:20 BP 154 / 73; Pulse 85; Resp 16; Pulse Ox 100% ; me1 14:00 BP 133 / 86; Pulse 79; Resp 16; Pulse Ox 100% on R/A; me1 14:45 Pain 6/10; me1 14:53 BP 128 / 79; Pulse 81; Resp 16; Pulse Ox 100% on R/A; me1 14:45 Pain Scale: Adult me1 MDM: 13:11 Patient medically screened. kb 13:19 Data reviewed: vital signs, nurses notes. kb 13:59 Differential diagnosis: contusion, rib fracture, strain. kb 13:59 Counseling: I had a detailed discussion with the patient and/or guardian regarding the kb historical points, exam findings, and any diagnostic results supporting the discharge/admit diagnosis, radiology results, the need for outpatient follow up, a family practitioner, to return to the emergency department if symptoms worsen or persist or if there are any questions or concerns that arise at home. 10/24 13:17 Order name: CT Chest Abdomen Pelvis W/O Contrast; Complete Time: 13:58 kb Administered Medications: 13:45 Drug: [place] PO 10 mg-325 mg 1 tabs PO once Route: PO; me1 14:45 Follow up: Response: No adverse reaction; Pain is decreased me1 13:45 Drug: Ibuprofen PO 600 mg PO once Route: PO; me1 14:45 Follow up: Pain 6/10 Adult; Response: No adverse reaction; Pain is decreased me1 Disposition: 17:13 I was immediately available on-site in the Emergency Department for consultation in the ms3 care of the patient. Disposition Summary: 10/25/23 14:42 Discharge Ordered Notes: Location: Home kb Condition: Stable kb Diagnosis - Contusion of right front wall of thorax kb Followup: kb - With: Emergency Department - When: As needed - Reason: Worsening of condition Followup: kb - With: Private Physician - When: 2 - 3 days - Reason: Recheck today's complaints, Continuance of care, Re-evaluation by your physician Discharge Instructions: - Discharge Summary Sheet kb - Rib Contusion kb Forms: - Medication Reconciliation Form kb - Thank You Letter kb - Antibiotic Education kb - Prescription Opioid Use kb - Patient Portal Instructions kb - Leadership Thank You Letter kb Prescriptions: - Tramadol 50 mg Oral Tablet - take 1 tablet ORAL route every 8 hours as needed; 12 tablet; Refills: 0, kb Product Selection Permitted Signatures: Dispatcher [employer] EDGi Recio FNP-C PUBLIC INFORMATION SPECIALIST-Ckb Jaziel Quintero, DO ms3 Rukhsana Gallo, RN RN me1
[2023-10-25 15:07] VITALS: BP 128/79; O2SAT 100
== END ==
LOC: ER 13:07
DX: S20.211A Contusion of right front wall of thorax, initial encounter (principal); Z88.8 Allergy status to other drugs, medicaments and biological substances; Z91.013 Allergy to seafood; Z91.048 Other nonmedicinal substance allergy status
CPT/HCPCS: 71250; 74176; 99283

== ENCOUNTER 2024-10-09 16:25 | Emergency (ER) | payer OTHER ==
[2024-10-09 17:58] LABS: Absolute Eosinophils 0.2 K/uL (0-0.5); Absolute Lymphocytes (CBC) 2.3 K/uL (0.7-4.9); Absolute Monocytes 0.3 K/uL (0.1-1.3); Absolute Neutrophil 2.9 K/uL (1.8-8.0); Basophils % 0.8 % (0-1.3); Eosinophils % 3.2 % (0-4.4); Hematocrit 34.7 % (36.0-45.0); Hemoglobin 11.5 g/dL (12.0-15.0); Lymphocytes % 39.8 % (15.3-44.8); MCH 27.9 pg (27.0-35.0); MCHC 33.3 g/dL (32.0-36.0); MCV 83.8 fL (80-100); MPV 8.7 fL (7.6-11.3); Monocytes % 5.5 % (3.3-12.3); Neutrophils % 50.7 % (41.7-73.7); Platelets 157 thou/uL (152-406); RBC Red Blood Cell Count 4.14 M/uL (3.86-4.86); Red Cell Distribution Width 15.3 % (12.1-15.2)
[2024-10-09 17:59] LABS: Specific Gravity 1.018 (1.005-1.030); Sqamous Epithelial <5 /HPF (None Seen); Urine Bacteria None Seen /HPF (<20); Urine Bilirubin NEGATIVE (Negative); Urine Blood Negative (Negative); Urine Clarity Clear (Clear); Urine Color Light-Yellow (Yellow); Urine Culture Reflex Order NOT NEEDED; Urine Glucose NEGATIVE (Negative); Urine Ketones NEGATIVE (Negative); Urine Microscopic Reflex YN ORDER UMIC; Urine Mucus Slight /HPF (None Seen); Urine Nitrite NEGATIVE (Negative); Urine Protein NEGATIVE (Negative); Urine RBC <5 /HPF (None Seen); Urine Urobilinogen Normal (Normal); Urine WBC Clump Rare /HPF (None Seen); Urine Yeast (Budding) Trace /HPF (None Seen); Urine pH 5.5 (5.0-7.0)
[2024-10-09 18:13] LABS: Albumin 3.6 g/dL (3.4-5.0); Albumin/Globulin Ratio 0.9 (1.1-1.8); Anion Gap 7.7 mEq/L (5.0-15.0); Bilirubin Total 0.8 mg/dL (0.2-1.0); Globulin 3.8 g/dL (2.3-3.5); Potassium 3.7 mEq/L (3.5-5.1); Protein, Total 7.4 g/dL (6.4-8.2)
[2024-10-09] MEDS ORDERED: METHOCARBAMOL 1,000 MG/10 ML VIAL ONE (19:22)
[2024-10-09] MEDS ORDERED: NA CHLORIDE 0.9% 100 ML ONE (19:22)
[2024-10-09] MEDS ORDERED: KETOROLAC 30 MG/ML INJ ONE (19:22)
--- NOTE | 2024-10-09 19:32 | RAD REPORT ---
EXAMINATION: Stone Protocol CLINICAL INDICATION: Abdominal pain TECHNIQUE: CT abdomen and pelvis was performed, without IV contrast, as per department protocol. Oral contrast not given. Axial, sagittal and coronal reconstructions were obtained. One or more of the following dose reduction techniques were used: Automated exposure control, adjustment of the mA and k V according to the patient size, and iterative reconstruction. Unless otherwise specified, incidental findings do not require dedicated imaging follow-up. COMPARISON: No prior exam. FINDINGS: The lack of intravenous and oral contrast limits the sensitivity of this exam for evaluation of solid visceral organs, vascular structures, and bowel A renal calculus not seen. No ureteral calculus. A bladder calculus not noted. No hydronephrosis Liver, spleen, pancreas and adrenals grossly normal Cholecystectomy. Several tiny lung nodules probably benign. Calcified granuloma left lung. Small to moderate periumbilical hernia containing fat. Tubal ligation. No adnexal mass. No evidence of diverticulitis. IMPRESSION: Negative for a genitourinary calculus
--- NOTE | 2024-10-09 20:42 | ER ---
Nurse's Notes [facility] Name: Isela Ivan Age: 59 yrs Sex: Female : 1965 Arrival Date: 10/09/2024 Time: 16:25 Bed 23 Private MD: Diagnosis: Dorsalgia, unspecified Presentation: 10/09 16:39 Chief complaint: Worsening right flank pain and nausea x 3 weeks. Coronavirus screen: hb At this time, the client does not indicate any symptoms associated with coronavirus-19. Ebola Screen: No symptoms or risks identified at this time. Initial Sepsis Screen: Does the patient meet any 2 criteria? No. Patient's initial sepsis screen is negative. Does the patient have a suspected source of infection? No. Patient's initial sepsis screen is negative. Risk Assessment: Do you want to hurt yourself or someone else? Patient reports no desire to harm self or others. Onset of symptoms was September 2024. 16:39 Method Of Arrival: Ambulatory hb 16:39 Acuity: VENKAT 3 hb Historical: - Allergies: 16:40 Iodine; hb 16:40 SEAFOOD; hb 16:40 Singulair; hb - PMHx: 16:40 Asthma; Diabetes - NIDDM; Hyperlipidemia; Hypertension; hb - PSHx: 16:40 Cholecystectomy; hb - Immunization history:: Adult Immunizations up to date. - Infectious Disease History:: Denies. - Social history:: Smoking status: Patient denies any tobacco usage or history of. Screenin:52 [facility] ED Fall Risk Assessment (Adult) History of falling in the last 3 months, jb4 including since admission No falls in past 3 months (0 pts) Confusion or Disorientation No (0 pts) Intoxicated or Sedated No (0 pts) Impaired Gait No (0 pts) Mobility Assist Device Used No (0 pt) Altered Elimination No (0 pt) Score/Fall Risk Level 0 - 2 = Low Risk Oriented to surroundings, Maintained a safe environment. Abuse screen: Denies threats or abuse. Nutritional screening: No deficits noted. Tuberculosis screening: No symptoms or risk factors identified. Assessment: 18:15 General: Appears in no apparent distress. uncomfortable, Behavior is calm, cooperative, jb4 appropriate for age. Pain: Complains of pain in right mid back Pain radiates to posterior aspect of right lateral abdomen, anterior aspect of right lateral abdomen and right lower quadrant Pain currently is 8 out of 10 on a pain scale. Neuro: Level of Consciousness is awake, alert, obeys commands, Oriented to person, place, time, situation. Cardiovascular: Patient's skin is warm and dry. Respiratory: Airway is patent Respiratory effort is even, unlabored, Respiratory pattern is regular, symmetrical. Derm: Skin is intact, Skin is pink, warm \T\ dry. Musculoskeletal: Circulation, motion, and sensation intact. Range of motion: intact in all extremities. 19:00 Reassessment: Patient appears in no apparent distress at this time. Patient and/or jb4 family updated on plan of care and expected duration. Pain level reassessed. Patient is alert, oriented x 3, equal unlabored respirations, skin warm/dry/pink. 20:52 Reassessment: Patient appears in no apparent distress at this time. Patient and/or jb4 family updated on plan of care and expected duration. Pain level reassessed. Patient is alert, oriented x 3, equal unlabored respirations, skin warm/dry/pink. Vital Signs: 16:39 BP 154 / 78; Pulse 82; Resp 16; Temp 98.5(O); Pulse Ox 100% on R/A; Weight 79.38 kg; hb Height 5 ft. 0 in. ; Pain 7/10; 19:35 BP 146 / 76; Pulse 73; Resp 16; Pulse Ox 100% on R/A; jb4 20:52 BP 141 / 84; Pulse 72; Resp 16; Pulse Ox 98% on R/A; jb4 16:39 Body Mass Index 34.18 (79.38 kg, 152.4 cm) hb 16:39 Pain Scale: Adult hb ED Course: 16:29 Patient arrived in ED. al6 16:40 Triage completed. hb 16:41 Arm band placed on. hb 16:47 Pop hSook PA is PHCP. cp 16:47 Gerald Carrasco MD is Attending Physician. cp 17:52 Initial lab(s) drawn, by me, sent to lab. Inserted saline lock: 22 gauge in right zm forearm, using aseptic technique. Blood collected. Flushed with 10 mL NS. 17:53 CBC with Diff Sent. zm 17:53 CMP Sent. zm 17:53 Lipase Sent. zm 17:53 Urinalysis w/ reflexes Sent. zm 19:15 [place], Gunner, RN is Primary Nurse. jb4 19:22 CT Stone Protocol In Process Unspecified. EDMS 20:52 Patient has correct armband on for positive identification. Bed in low position. Call jb4 light in reach. Side rails up X 1. Provided Education on: D/c instructions.. 20:52 No provider procedures requiring assistance completed. IV discontinued, intact, jb4 bleeding controlled, No redness/swelling at site. Pressure dressing applied. Administered Medications: 19:30 Drug: Methocarbamol IVPB 1 grams IVPB once over 1 hrs; (mix in NS 100 mL) Route: IVPB; jb4 Infused Over: 1 hrs; Site: right antecubital; 19:30 Drug: Ketorolac IVP 15 mg IVP once Route: IVP; Site: right antecubital; jb4 Medication: 20:52 VIS not applicable for this client. jb4 Outcome: 20:41 Discharge ordered by MD. cp 20:52 Discharged to home ambulatory, with family, jb4 20:52 Condition: stable 20:52 Discharge instructions given to patient, Instructed on discharge instructions, follow up and referral plans. no drinking with medication, no driving heavy equipment, medication usage, Demonstrated understanding of instructions, follow-up care, medications, Prescriptions given X 2, 21:12 Patient left the ED. jb4 Signatures: Dispatcher [employer] EDMS Pop Shook PA PA cp Baxter, Heather, KHUSHI RN Gunner Samuels RN RN jb4 Elly De La Vega Alissa al6 Corrections: (The following items were deleted from the chart) 19:12 17:30 General: Appears in no apparent distress. uncomfortable, Behavior is calm, jb4 cooperative, appropriate for age, jb4 19:12 17:30 Pain: Complains of pain in right mid back Pain radiates to posterior aspect of jb4 right lateral abdomen, anterior aspect of right lateral abdomen and right lower quadrant Pain currently is 8 out of 10 on a pain scale. jb4 19:12 17:30 Neuro: Level of Consciousness is awake, alert, obeys commands, Oriented to jb4 person, place, time, situation, jb4 19:12 17:30 Cardiovascular: Patient's skin is warm and dry. jb4 jb4 19:12 17:30 Respiratory: Airway is patent Respiratory effort is even, unlabored, Respiratory jb4 pattern is regular, symmetrical, jb4 : 17:30 Derm: Skin is intact, Skin is pink, warm \T\ dry. jb4 jb4 : 17:30 Musculoskeletal: Circulation, motion, and sensation intact. Range of motion: jb4 intact in all extremities, jb4 : 20:52 IV discontinued, intact, bleeding controlled, No redness/swelling at site. jb4 Pressure dressing applied, jb4 :07 21:52 Patient transferred, IV remains in place. jb4 jb4
--- NOTE | 2024-10-09 20:42 | EDPHYS ---
Physician Documentation [facility] Name: Isela Ivan Age: 59 yrs Sex: Female : 1965 Arrival Date: 10/09/2024 Time: 16:25 Bed 23 Private MD: ED Physician Gerald Carrasco HPI: 10/09 17:30 This 59 yrs old Female presents to ER via Ambulatory with complaints of Back cp Pain, side pain. 17:30 The patient presents with pain that is acute, with no known mechanism of injury. The cp symptoms are located in the right mid back and right flank. Onset: The symptoms/episode began/occurred 3 week(s) ago. The pain radiates to the right side abdomen and right groin. Associated signs and symptoms: Pertinent negatives: chest pain, fever, cough, shortness of breath. 17:30 Severity of symptoms: in the emergency department the symptoms are unchanged, despite cp home interventions. Historical: - Allergies: 16:40 Iodine; hb 16:40 SEAFOOD; hb 16:40 Singulair; hb - PMHx: 16:40 Asthma; Diabetes - NIDDM; Hyperlipidemia; Hypertension; hb - PSHx: 16:40 Cholecystectomy; hb - Immunization history:: Adult Immunizations up to date. - Infectious Disease History:: Denies. - Social history:: Smoking status: Patient denies any tobacco usage or history of. ROS: 17:35 Constitutional: Negative for body aches, chills, fever, poor PO intake, cp 17:35 Cardiovascular: Negative for chest pain, edema, palpitations, cp Exam: 17:40 Constitutional: The patient appears in no acute distress, alert, awake, cp non-diaphoretic, non-toxic, well developed, well nourished, uncomfortable, 17:40 Head/Face: Normocephalic, atraumatic. cp 17:40 Eyes: Periorbital structures: appear normal, Conjunctiva: normal, no exudate, no injection, Sclera: no appreciated abnormality, Lids and lashes: appear normal, bilaterally, 17:40 ENT: External ear(s): are unremarkable, Nose: is normal, Mouth: Lips: moist, Oral mucosa: moist, Posterior pharynx: Airway: no evidence of obstruction, patent, 17:40 Chest/axilla: Inspection: normal, Palpation: crepitus, is not appreciated, tenderness, is not appreciated, 17:40 Cardiovascular: Rate: normal, Rhythm: regular, Edema: is not appreciated, JVD: is not appreciated, 17:40 Respiratory: the patient does not display signs of respiratory distress, Respirations: normal, no use of accessory muscles, no retractions, labored breathing, is not present, Breath sounds: are clear throughout, no decreased breath sounds, no stridor, no wheezing, 17:40 Abdomen/GI: Inspection: abdomen appears normal, Bowel sounds: active, all quadrants, Palpation: soft, in all quadrants, moderate abdominal tenderness, in the posterior aspect of right lateral abdomen and anterior aspect of right lateral abdomen, rebound tenderness, is not appreciated, involuntary guarding, is not appreciated, 17:40 Back: CVA tenderness, that is moderate, is noted on the right, vertebral tenderness, is not appreciated, 17:40 Skin: cellulitis, is not appreciated, no rash present. 17:40 Neuro: Orientation: to person, place \T\ time. Mentation: is normal, Motor: moves all fours, strength is normal, Gait: is steady, Vital Signs: 16:39 BP 154 / 78; Pulse 82; Resp 16; Temp 98.5(O); Pulse Ox 100% on R/A; Weight 79.38 kg; hb Height 5 ft. 0 in. ; Pain 7/10; 19:35 BP 146 / 76; Pulse 73; Resp 16; Pulse Ox 100% on R/A; jb4 20:52 BP 141 / 84; Pulse 72; Resp 16; Pulse Ox 98% on R/A; jb4 16:39 Body Mass Index 34.18 (79.38 kg, 152.4 cm) hb 16:39 Pain Scale: Adult hb MDM: 16:47 Medical Screening Exam initiated cp 18:00 Differential diagnosis: Hydronephrosis Ureterolithiasis vertebral fracture, cp choledocholithiasis, pancreatitis, kidney stone, herpes zoster. 20:40 Data reviewed: vital signs, nurses notes, lab test result(s), radiologic studies, CT cp scan, and as a result, I will discharge patient. 20:40 I considered the following discharge prescriptions or medication management in the emergency department Medications were administered in the Emergency Department. See MAR. Care significantly affected by the following chronic conditions: Diabetes, Hypertension. Counseling: I had a detailed discussion with the patient and/or guardian regarding the historical points, exam findings, and any diagnostic results supporting the discharge/admit diagnosis, lab results, radiology results, to return to the emergency department if symptoms worsen or persist or if there are any questions or concerns that arise at home. Response to treatment: the patient's symptoms have markedly improved after treatment, and as a result, I will discharge patient. 10/09 17:28 Order name: CBC with Diff; Complete Time: 18:31 cp 10/09 18:31 Interpretation: Normal except: HGB 11.5; HCT 34.7; RDW 15.3. cp 10/09 17:28 Order name: CMP; Complete Time: 18:31 cp 10/09 18:31 Interpretation: Normal except: CL 110; GFR 65; GLOB 3.8; A/G 0.9. cp 10/09 17:28 Order name: Lipase; Complete Time: 18:31 cp 10/09 17:28 Order name: Urinalysis w/ reflexes; Complete Time: 18:31 cp 10/09 18:31 Order name: CT Stone Protocol; Complete Time: 20:19 cp 10/09 20:19 Interpretation: Report reviewed. 10/09 17:28 Order name: IV Saline Lock; Complete Time: 17:53 cp 10/09 17:28 Order name: Labs collected and sent; Complete Time: 17:53 cp Administered Medications: 19:30 Drug: Methocarbamol IVPB 1 grams IVPB once over 1 hrs; (mix in NS 100 mL) Route: IVPB; jb4 Infused Over: 1 hrs; Site: right antecubital; 19:30 Drug: Ketorolac IVP 15 mg IVP once Route: IVP; Site: right antecubital; jb4 Disposition: 10/10 08:00 Co-signature as Attending Physician, Gerald Carrasco MD I reviewed the patient's care rn provided by the Advanced Practice Provider and agree with the diagnosis and treatment plan. 15:51 Chart complete. cp Disposition Summary: 10/09/24 20:41 Discharge Ordered Notes: Location: Home cp Problem: new cp Symptoms: have improved cp Condition: Stable cp Diagnosis - Dorsalgia, unspecified cp Followup: cp - With: Private Physician - When: 2 - 3 days - Reason: Recheck today's complaints Discharge Instructions: - Discharge Summary Sheet cp - Acute Back Pain, Adult cp - Musculoskeletal Pain cp Forms: - Medication Reconciliation Form cp - Antibiotic Education cp - Prescription Opioid Use cp - Patient Portal Instructions cp - Leadership Thank You Letter cp Prescriptions: - Anaprox DS 550 mg Oral Tablet - take 1 tablet ORAL route every 12 hours As needed; 20 tablet; Refills: 0, cp Product Selection Permitted - methocarbamol 750 mg Oral tablet - take 1 tablet ORAL route 3 times per day; 30 tablet; Refills: 0, Product cp Selection Permitted Signatures: Dispatcher [employer] EDMS Gerald Carrasco MD MD rn Page, Corey, PA PA cp Tisha Burdick RN RN Gunner Samuels RN RN jb4 Corrections: (The following items were deleted from the chart) 10/09 17:29 17:29 CBC+H.LAB.BRZ ordered. EDMS EDMS 17:29 17:29 COMPREHENSIVE METABOLIC PANEL+C.LAB.BRZ ordered. EDMS EDMS 17:29 17:29 LIPASE+C.LAB.BRZ ordered. EDMS EDMS 17:29 17:29 Urinalysis+U.LAB.BRZ ordered. EDMS EDMS
[2024-10-09 21:34] VITALS: TEMP 98.5
[2024-10-09 21:37] VITALS: BP 141/84; O2SAT 98
== END 2024-10-09 21:12 | disposition home or self-care (01) ==
LOC: ER 16:25
DX: M54.9 Dorsalgia, unspecified (principal)
CPT/HCPCS: 85025; 81001; 36415; 83690; 80053; 76377; 74176; 96375; 96374; 99284; J2800